=== PATIENT | male | born 1980 | race Caucasian/White ===

== ENCOUNTER → 2018-12-03 14:12 | Outpatient (CLI) | payer OTHER, SELFPAY ==
--- NOTE | 2018-12-03 09:15 | LES_PTH ---
PATIENT: JONATHAN BEAR LOC: [facility] U#:[id number] AGE/SX: 44/M ROOM: RE12/03/[address]: Dr. Cyrus Harris MD : 1980 BED: DIS: SPEC #: [id number] RECD: 12/03/18 13:30 STATUS: DOUGLAS MARINO #: [id number] DORIS: 12/03/18 09:[address]: Cyrus Harris DEPT: SURGICAL PATHOLOGY RECD BY: Bela Suarez Tissues: Skin of nose, NOS Procedures: Surgery Specimen Level IV HEADER OPERATION: Not noted PRE-OP DIAGNOSIS: Nonhealing lesion inside nose TISSUE SUBMITTED: Right nostril sore MICROSCOPIC DIAGNOSIS Lesion of right nostril, biopsy: Skin with hyperkeratosis and parakeratosis. Dermal vascular ectasia. No evidence of malignancy or inflammation. AM:aric 12/04/18 COMMENT Case has been reviewed in consultation with Dr. Purvis who concurs with the above diagnosis. IDC:SJ MICROSCOPIC DESCRIPTION Slides are reviewed. GROSS DESCRIPTION Received in fixative is one container labeled with the patient's name and designated right nostril sore. The specimen consists of a piece of carbone-pink soft tissue measuring 0.4 x 0.3 x 0.1 cm. The specimen is totally submitted in one cassette. / MEGAN:rancho 12/03/18 TC: 5 CPT: 10349
== END ==
PROVIDERS: Referring Provider Otolaryngology; Visit Provider Otolaryngology
DX: L57.0 Actinic keratosis (principal); R23.4 Changes in skin texture
CPT/HCPCS: 88305

== ENCOUNTER → 2019-11-06 16:21 | Outpatient (CLI) | payer OTHER, SELFPAY ==
[2019-11-06 17:37] LABS: Absolute Lymphocyte Count 2.09 X10^3/uL (0.83-4.51); Absolute Neutrophil Count 1.2 X10^3/uL (2.0-7.7); Basophil# 0.02 X10^3/uL; Basophil% 0.5 % (0-1); Eosinophil# 0.08 X10^3/uL; Hematocrit 49.2 % (40-54); Lymphocyte # 2.09 X10^3/ul (4.0); Lymphocyte % 52.5 % (19-41); Mean Corp Hgb Conc 34.6 g/dL (32-36); Mean Corpuscular Hgb 31.4 pg (27.0-32.0); Mean Corpuscular Volume 90.8 fL (80-94); Mean Platelet Vol. 11.2 fl (6.2-12.0); Monocyte# 0.55 X10^3/uL; Monocyte% 13.8 % (0-10); NRBC Flagged by Analyzer 0 % (0-5); Neutrophil # 1.23 X10^3/uL (2.7-7.7); Neutrophil % 30.9 % (47-70); Platelet Count 175 K/mm3 (150-450); RBC Distribution Width SD 39.9 fl (35.1-43.9); Red Blood Count 5.42 M/mm3 (4.6-6.2)
[2019-11-12 04:59] LABS: Anti-Nuclear Antibody Test POSTIVE; Anti-dsDNA Ab <1
== END ==
PROVIDERS: PCP Family Medicine; Referring Provider Dermatology Pediatric Dermatology; Visit Provider Dermatology Pediatric Dermatology
DX: L30.9 Dermatitis, unspecified (principal); L55.9 Sunburn, unspecified
CPT/HCPCS: 36415; 85025; 86038; 86225